=== PATIENT | male | born 1935 | race Caucasian/White ===

== ENCOUNTER 2019-12-03 09:05 | Inpatient (IN) ==
[2019-12-03 10:04] LABS: Basophils # 0.1 K/mcL (0.0-0.2); Basophils % 0.7 %; Eosinophils # 0.2 K/mcL (0.0-0.6); Eosinophils % 1.7 %; Hematocrit 44.5 % (37.5-50.1); Immature Granulocytes % 0.6 % (0-4); Lymphocytes # 0.4 K/mcL (0.6-4.6); Lymphocytes % 4.2 %; Mean Corpuscular HGB Conc 31.5 g/dL (31.6-35.5); Mean Corpuscular Hemoglobin 30.6 pg (28.0-33.3); Mean Corpuscular Volume 97.4 fL (83.0-100.0); Mean Platelet Volume 10.2 fL (9.4-12.4); Monocytes # 0.6 K/mcL (0.0-1.3); Monocytes % 5.5 %; Platelet Count 126 K/mcL (140-400); Red Blood Count 4.57 M/mcL (4.19-5.50); Red Cell Distribution Width 12.7 % (11.5-14.5); Segmented Neutrophils % 87.3 %; White Blood Count 10.3 K/mcL (4.3-11.1)
[2019-12-03 10:12] LABS: INR 1.1
[2019-12-03 10:14] LABS: Activated Partial Thrombo Time 29.2 Seconds (26.0-36.0)
[2019-12-03 10:26] LABS: BUN/Creatinine Ratio 20 (6-26); Blood Urea Nitrogen 22 mg/dL (8-23); Calcium 9.1 mg/dL (8.6-10.3); Carbon Dioxide 33 mEq/L (23-29); Chloride 104 mEq/L (98-107); Glucose 125 mg/dL (70-105); Osmolality,Calculated 299 (280-300); Potassium 4.5 mEq/L (3.5-5.1); Sodium 142 mEq/L (136-145); Troponin I 0.09 ng/mL (< 0.04); eGFR For African Americans > 60 (> 60); eGFR For Non-African Americans > 60 (> 60)
[2019-12-03 10:57] LABS: Creatine Kinase 169 Units/L (30-223)
[2019-12-03] MEDS ORDERED: Aspirin 81 MG TAB.CHEW PO ONE (11:05)
[2019-12-03 11:15] LABS: Bilirubin,Urine Small (Negative); Blood,Urine Negative (Negative); Clarity,Urine Clear (Clear); Color,Urine Dark Yellow (Yellow); Glucose,Urine (UA) Normal (Normal); Ketones,Urine Negative (Negative); Leukocyte Esterase,Urine Trace (Negative); Nitrite,Urine Negative (Negative); Protein,Urine 30 mg/dL (Neg-Trace); Specific Gravity,Urine 1.025 (1.010-1.025); Urobilinogen,Urine Normal (Normal)
[2019-12-03 11:16] LABS: Bacteria,Urine None Seen per hpf (None-Few); Hyaline Casts,Urine None Seen per lpf (None-Few); RBC,Urine 0-3 per hpf (0-3); Squamous Epithelial Cell,Urine Many per lpf (None-Few); WBC,Urine 0-3 per hpf (0-3)
[2019-12-03] MEDS ORDERED: Ondansetron 4 MG/2 ML VIAL IVP PRN (12:14)
[2019-12-03] MEDS ORDERED: Ketorolac 15 MG/ML VIAL IVP PRN (12:14)
[2019-12-03] MEDS ORDERED: Naloxone 0.4 MG/ML INJ IVP PRN (12:14)
[2019-12-03] MEDS ORDERED: Haloperidol Lactate 5 MG/ML VIAL IVP PRN ×2 (15:29→17:50)
[2019-12-03 17:11] LABS: ABG Base Excess 8 mEq/L (-2 to 3); ABG HCO3 35 mEq/L (21-27); ABG Oxygen Saturation 93 % (95-98); ABG PCO2 54 mmHg (35-45); ABG PH 7.42 pH Units (7.32-7.45); ABG PO2 67 mmHg (85-104); ABG TCO2 36 mEq/L (20-26)
[2019-12-03] MEDS: Morphine Sulfate 2 MG/ML SYRINGE IVP PRN ×2 (17:55→20:55)
[2019-12-04 02:09] LABS: Basophils % 0.3 %; Eosinophils # 0.1 K/mcL (0.0-0.6); Eosinophils % 1.3 %; Hematocrit 42.2 % (37.5-50.1); Hemoglobin 13.1 g/dL (12.9-16.9); Immature Granulocytes % 0.6 % (0-4); Lymphocytes # 0.5 K/mcL (0.6-4.6); Lymphocytes % 5.4 %; Mean Corpuscular Hemoglobin 30.6 pg (28.0-33.3); Mean Corpuscular Volume 98.6 fL (83.0-100.0); Mean Platelet Volume 10.5 fL (9.4-12.4); Monocytes # 0.5 K/mcL (0.0-1.3); Monocytes % 5.2 %; Neutrophils # 8.3 K/mcL (1.6-8.9); Platelet Count 100 K/mcL (140-400); Red Blood Count 4.28 M/mcL (4.19-5.50); Red Cell Distribution Width 12.9 % (11.5-14.5); Segmented Neutrophils % 87.2 %; White Blood Count 9.5 K/mcL (4.3-11.1)
[2019-12-04 02:19] LABS: VBG HCO3 32 mEq/L (21-27); VBG PCO2 65 mmHg (41-51); VBG PO2 128 mmHg (25-50)
[2019-12-04 02:27] LABS: BUN/Creatinine Ratio 27 (6-26); Blood Urea Nitrogen 28 mg/dL (8-23); Calcium 8.8 mg/dL (8.6-10.3); Carbon Dioxide 31 mEq/L (23-29); Chloride 102 mEq/L (98-107); Glucose 102 mg/dL (70-105); Osmolality,Calculated 296 (280-300); Potassium 4.2 mEq/L (3.5-5.1); Sodium 140 mEq/L (136-145); eGFR For African Americans > 60 (> 60); eGFR For Non-African Americans > 60 (> 60)
[2019-12-04] MEDS: Morphine Sulfate 2 MG/ML SYRINGE IVP PRN ×3 (02:42→16:47)
[2019-12-04] MEDS: *HR* Heparin 5,000 UNIT/ML VIAL SQ SCH (18:29)
[2019-12-04] MEDS ORDERED: Albuterol 2.5 MG/3 ML NEBULIZER IH PRN (20:07)
[2019-12-04] MEDS: Ipratropium/Albuterol Neb 3 ML IH SCH (22:12)
[2019-12-05] MEDS: Ipratropium/Albuterol Neb 3 ML IH SCH ×3 (03:58→15:26)
[2019-12-05] MEDS: Morphine Sulfate 2 MG/ML SYRINGE IVP PRN ×2 (04:41→15:14)
[2019-12-05] MEDS: *HR* Heparin 5,000 UNIT/ML VIAL SQ SCH (06:09)
[2019-12-05] MEDS ORDERED: *HR* Dextrose 50 % in Water (Syg) 50 ML SYRINGE IVP PRN (07:24)
[2019-12-05] MEDS ORDERED: Dextrose Gel 15 GM/37.5 ML TUBE PO PRN ×2 (07:24)
[2019-12-05] MEDS ORDERED: D5% in Water 1,000 ML IVC PRN (07:24)
[2019-12-05] MEDS ORDERED: D5% in 0.9% NACL 1,000 ML IVC SCH (07:30)
[2019-12-05] MEDS ORDERED: Insulin LISPRO 300 UNITS/3 ML VIAL SQ SCH (12:00)
[2019-12-05 16:53] VITALS: BP 119/76
[2019-12-05] MEDS ORDERED: *HR* FentaNYL (PF) 100 MCG/2 ML VIAL ONE (17:35)
[2019-12-05] MEDS ORDERED: *HR* Propofol 200 MG/20 ML VIAL IVP ONE (17:35)
[2019-12-05] MEDS ORDERED: *HR* Rocuronium Bromide 50 MG/5 ML VIAL ONE (17:36)
[2019-12-05] MEDS ORDERED: Lidocaine -MPF 2% 2 ML VIAL ONE (17:36)
[2019-12-05] MEDS ORDERED: Ondansetron 4 MG/2 ML VIAL ONE (17:36)
== END 2019-12-05 21:30 | disposition short-term general hospital (02) | DRG 536 ==
LOC: 3NENU 09:05 → EMEROOARM 09:05 → 3NENU 13:23 → 2NNU 16:43 → 3NENU 12-05 12:27
PROVIDERS: ADMIT Internal Medicine; ATTEND Internal Medicine